=== PATIENT | female | born 1955 | race Two or more races ===

== ENCOUNTER 2020-05-30 08:53 | Outpatient (CLI) | payer OTHER | END 2020-05-30 09:01 | disposition home or self-care (01) | LOC: RX STUDY 08:53 | PROVIDERS: ATTEND Internal Medicine Gastroenterology | DX: R13.19 Other dysphagia (principal); K21.9 Gastro-esophageal reflux disease without esophagitis; Z12.11 Encounter for screening for malignant neoplasm of colon ==